=== PATIENT | male | born 1945 | race Caucasian/White ===

== ENCOUNTER 2016-02-03 14:51 | Observation (INO) | payer MEDICARE, OTHER ==
[2016-02-03] MEDS ORDERED: FOLIC ACID INJ 1 MG, THIAMINE INJ 100 MG, MAGNESIUM SULFATE 2 GM, MULTIVITAMIN 10 ML in... IV STA ×5 (15:22)
[2016-02-03] MEDS ORDERED: SODIUM CHLORIDE FLUSH 0.9% 10 ML SYRINGE IVP PRN (18:23)
[2016-02-03] MEDS ORDERED: ACETAMINOPHEN 325 MG TABLET PO PRN (18:23)
[2016-02-03] MEDS ORDERED: ONDANSETRON 4 MG/2 ML VIAL IVP PRN (18:23)
[2016-02-03] MEDS: NS W/20 MEQ KCL 1,000 ML IV SCH (18:54)
[2016-02-03] MEDS: SODIUM CHLORIDE FLUSH 0.9% 10 ML SYRINGE IVP SCH (21:23)
[2016-02-04] MEDS: NS W/20 MEQ KCL 1,000 ML IV SCH ×3 (04:45→15:50)
[2016-02-04] MEDS: SODIUM CHLORIDE FLUSH 0.9% 10 ML SYRINGE IVP SCH ×4 (07:37→23:22)
[2016-02-04] MEDS ORDERED: IOPAMIDOL-300 100 ML VIAL IVP ONE (08:14)
[2016-02-04] MEDS ORDERED: IOPAMIDOL-300 50 ML VIAL PO ONE (08:22)
[2016-02-04] MEDS: ENOXAPARIN 40 MG/0.4 ML SYRINGE SUBQ SCH (09:14)
[2016-02-04] MEDS: THIAMINE 100 MG/1 ML 2 ML MDV IM SCH (09:15)
[2016-02-04] MEDS: POLYETHYLENE GLYCOL 3350 17 GM PACKET PO SCH (09:15)
[2016-02-05] MEDS: NS W/20 MEQ KCL 1,000 ML IV SCH ×2 (01:28→13:49)
[2016-02-05] MEDS: THIAMINE 100 MG/1 ML 2 ML MDV IM SCH (09:29)
[2016-02-05] MEDS: ENOXAPARIN 40 MG/0.4 ML SYRINGE SUBQ SCH (09:30)
[2016-02-05] MEDS: POLYETHYLENE GLYCOL 3350 17 GM PACKET PO SCH (09:30)
[2016-02-05] MEDS: SODIUM CHLORIDE FLUSH 0.9% 10 ML SYRINGE IVP SCH ×2 (13:50→23:12)
[2016-02-06] MEDS: SODIUM CHLORIDE FLUSH 0.9% 10 ML SYRINGE IVP SCH ×3 (06:31→21:33)
[2016-02-06] MEDS: POLYETHYLENE GLYCOL 3350 17 GM PACKET PO SCH (08:11)
[2016-02-06] MEDS: ENOXAPARIN 40 MG/0.4 ML SYRINGE SUBQ SCH (08:12)
[2016-02-06] MEDS: THIAMINE 100 MG/1 ML 2 ML MDV IM SCH (08:12)
[2016-02-06] MEDS ORDERED: FLU VACCINE QS 2016-17 60 MCG/0.5 ML SYRINGE IM ONE (16:00)
[2016-02-06] MEDS ORDERED: PNEUMOCOCCAL 13-VALENT CONJ 0.5 ML SYRINGE IM ONE (16:00)
[2016-02-06] MEDS: rifAXIMin 550 MG TABLET PO SCH (21:32)
[2016-02-06] MEDS: PROPRANOLOL 10 MG TABLET PO SCH (21:32)
[2016-02-07] MEDS: SODIUM CHLORIDE FLUSH 0.9% 10 ML SYRINGE IVP SCH ×3 (06:24→22:24)
[2016-02-07] MEDS: PROPRANOLOL 10 MG TABLET PO SCH ×3 (06:27→22:58)
[2016-02-07] MEDS: THIAMINE 100 MG/1 ML 2 ML MDV IM SCH (08:12)
[2016-02-07] MEDS: FUROSEMIDE 20 MG TABLET PO SCH (08:12)
[2016-02-07] MEDS: SPIRONOLACTONE 25 MG TABLET PO SCH (08:12)
[2016-02-07] MEDS: rifAXIMin 550 MG TABLET PO SCH ×2 (08:12→22:24)
[2016-02-07] MEDS: ENOXAPARIN 40 MG/0.4 ML SYRINGE SUBQ SCH (08:12)
[2016-02-07] MEDS: DOCUSATE SODIUM 250 MG CAPSULE PO SCH (11:14)
[2016-02-07] MEDS: POLYETHYLENE GLYCOL 3350 17 GM PACKET PO SCH (11:14)
[2016-02-07] MEDS: SENNA 8.6 MG TABLET PO SCH (11:14)
[2016-02-07] MEDS ORDERED: LACTULOSE 10 GM /15 ML UDC PO SCH (22:40)
[2016-02-08] MEDS: SODIUM CHLORIDE FLUSH 0.9% 10 ML SYRINGE IVP SCH ×4 (06:42→15:54)
[2016-02-08] MEDS: PROPRANOLOL 10 MG TABLET PO SCH ×3 (06:42→21:38)
[2016-02-08] MEDS: ENOXAPARIN 40 MG/0.4 ML SYRINGE SUBQ SCH (09:10)
[2016-02-08] MEDS: FUROSEMIDE 20 MG TABLET PO SCH (09:10)
[2016-02-08] MEDS: POLYETHYLENE GLYCOL 3350 17 GM PACKET PO SCH (09:10)
[2016-02-08] MEDS: THIAMINE 100 MG/1 ML 2 ML MDV IM SCH (09:10)
[2016-02-08] MEDS: SPIRONOLACTONE 25 MG TABLET PO SCH (09:10)
[2016-02-08] MEDS: rifAXIMin 550 MG TABLET PO SCH ×2 (09:10→21:38)
[2016-02-08] MEDS: SENNA 8.6 MG TABLET PO SCH (09:11)
[2016-02-08] MEDS: DOCUSATE SODIUM 250 MG CAPSULE PO SCH (09:11)
[2016-02-08] MEDS ORDERED: LACTULOSE 10 GM /15 ML UDC PO SCH (21:00)
[2016-02-09] MEDS: SODIUM CHLORIDE FLUSH 0.9% 10 ML SYRINGE IVP SCH ×2 (05:28→15:30)
[2016-02-09] MEDS: PROPRANOLOL 10 MG TABLET PO SCH (06:51)
[2016-02-09] MEDS: THIAMINE 100 MG/1 ML 2 ML MDV IM SCH (07:27)
[2016-02-09] MEDS: ENOXAPARIN 40 MG/0.4 ML SYRINGE SUBQ SCH (08:55)
[2016-02-09] MEDS: SPIRONOLACTONE 25 MG TABLET PO SCH (08:55)
[2016-02-09] MEDS: rifAXIMin 550 MG TABLET PO SCH (08:55)
[2016-02-09] MEDS: FUROSEMIDE 20 MG TABLET PO SCH (08:55)
[2016-02-09] MEDS ORDERED: PROPRANOLOL 10 MG TABLET PO SCH (09:00)
[2016-02-09] MEDS: POLYETHYLENE GLYCOL 3350 17 GM PACKET PO SCH (09:01)
[2016-02-09] MEDS: DOCUSATE SODIUM 250 MG CAPSULE PO SCH (09:01)
[2016-02-09] MEDS: SENNA 8.6 MG TABLET PO SCH (09:01)
== END 2016-02-09 17:00 | disposition home health service (06) ==
DX: R41.82 Altered mental status, unspecified (principal); K70.31 Alcoholic cirrhosis of liver with ascites; F10.188 Alcohol abuse with other alcohol-induced disorder; F03.90 Unspecified dementia, unspecified severity, without behavioral disturbance, psychotic disturbance, mood disturbance, and anxiety; I85.10 Secondary esophageal varices without bleeding; R62.7 Adult failure to thrive; E86.0 Dehydration; F17.200 Nicotine dependence, unspecified, uncomplicated; R63.4 Abnormal weight loss; Z68.21 Body mass index [BMI] 21.0-21.9, adult; M79.89 Other specified soft tissue disorders; K76.6 Portal hypertension; Z23 Encounter for immunization
CPT/HCPCS: 36415; 70450; 74177; 80053; 81001; 82024; 82140; 82533; 82550; 82553; 83605; 83690; 84439; 84484; 84702; 85025; 87040; 87086; 90471; 90670; 90686; 96361; 96365; 96366; 96372; 97001; 97003; 97116; 97535; 99285; A9270; G0378; G0478; G0480; G8978; G8979; G8980; G8987; G8988; J1650; J3411; J8499; Q9967